=== PATIENT | male | born 1965 | race Caucasian/White ===

== ENCOUNTER → 2017-04-10 | Outpatient (CLI) | payer BC | LOC: COL.RAD 13:13 | DX: M19.011 Primary osteoarthritis, right shoulder (principal); S43.491A Other sprain of right shoulder joint, initial encounter | CPT/HCPCS: A9585; Q9967 ==

== ENCOUNTER 2017-05-08 05:32 | Day surgery (SDC) | payer BC ==
[~2017-05-08] VITALS: Ht 185.4 cm; Wt 84.5 kg
[2017-05-08 05:47] VITALS: BP 122/79; PULSE 63; TEMP 98
[2017-05-08 07:10] VITALS: BP 125/80; PULSE 57; TEMP 98.1
[2017-05-08 07:25] VITALS: BP 125/78; PULSE 56
[2017-05-08 07:40] VITALS: BP 121/75; PULSE 58
[2017-05-08] MEDS ORDERED: NORCO 325 MG-7.1 TAB PO (07:49)
[2017-05-08] MEDS ORDERED: PHENERGAN 25 TA25 MG PO (07:50)
[2017-05-08 07:55] VITALS: BP 128/79; PULSE 54
== END 2017-05-08 08:15 | disposition home or self-care (01) ==
LOC: SDCO 05:32
DX: M75.01 Adhesive capsulitis of right shoulder (principal); Z85.828 Personal history of other malignant neoplasm of skin; Z82.49 Family history of ischemic heart disease and other diseases of the circulatory system; Z82.5 Family history of asthma and other chronic lower respiratory diseases
CPT/HCPCS: J1885; J2405; J2704; J3010; J3301; J7120

== ENCOUNTER → 2021-02-21 | Outpatient (CLI) | payer BC ==
[~2021-02-21] MED LIST: NORCO 325 MG-7.1 TAB PO; PHENERGAN 25 TA25 MG PO
== END ==
LOC: COL.RAD 02-18 09:45
DX: R11.0 Nausea (principal)